=== PATIENT | male | born 1955 | race African-American/Black ===

== ENCOUNTER 2018-04-23 02:10 | Inpatient (IN) | payer MEDICAID, OTHER ==
[~2018-04-23] VITALS: Ht 177.8 cm; Wt 79.4 kg
[2018-04-23 02:53] LABS: BASOPHILS % (AUTO) 1.1 % (0.0-2.0); EOSINOPHILS % (AUTO) 4.1 % (1.0-6.0); HEMATOCRIT 35.2 % (41-53); MEAN CORPUSCULAR HEMOGLOBIN 31.5 pg (26.0-34.0); MEAN CORPUSCULAR HGB CONC 34.2 G/dL (31.0-37.0); MEAN CORPUSCULAR VOLUME 92 fL (80-100); MONOCYTES # (AUTO) 0.6 K/uL (0.1-1.0); MONOCYTES % (AUTO) 9.7 % (2.0-9.0); NEUTROPHILS # (AUTO) 3.6 K/uL (1.8-7.7); NEUTROPHILS % (AUTO) 55.1 % (40.0-70.0); PLATELET COUNT (AUTO) 222 K/uL (150-450); RED BLOOD CELL COUNT(AUTO) 3.82 MIL/uL (4.50-5.90); RED CELL DISTRIBUTION WIDTH 14.8 % (11.5-14.5)
[2018-04-23 03:00] LABS: ANION GAP 8 mmol/L (8-16); CALCIUM, TOTAL 8.5 mg/dL (8.8-10.5); CARBON DIOXIDE 25 mmol/L (22-29); CHLORIDE 106 mmol/L (98-107); CREATININE 1.06 mg/dL (0.60-1.30); GLOMERULAR FILTR. RATE CALC > 60 mL/min (>60); GLUCOSE,RANDOM 95 mg/dL (70-110); POTASSIUM 4.1 mmol/L (3.5-5.1); SODIUM SERUM 139 mmol/L (136-145); UREA NITROGEN, BLOOD 17 mg/dL (7-18)
[2018-04-23 03:07] LABS: ALANINE AMINOTRANSFERASE 37 U/L (12-78); ALBUMIN 3.4 g/dL (3.4-5.0); ALKALINE PHOSPHATASE 95 U/L (46-116); ASPARTATE AMINOTRANSFERASE 35 U/L (15-37); BILIRUBIN,TOTAL 0.4 mg/dL (0.1-1.0); TOTAL PROTEIN, SERUM 6.6 g/dL (6.4-8.2)
[2018-04-23] MEDS ORDERED: ZOLPIDEM TARTRATE 10 MG TABLET PO PRN (05:00)
[2018-04-23] MEDS ORDERED: HALOPERIDOL 5 MG TABLET PO PRN (05:00)
[2018-04-23 12:45] VITALS: BP 146/98
[2018-04-23 16:40] VITALS: BP 160/102
[2018-04-23] MEDS ORDERED: MAG HYDROX/AL HYDROX/SIMETH ES 30 ML SUSPENSION UDCUP PO PRN (17:00)
[2018-04-23] MEDS ORDERED: IBUPROFEN 400 MG TABLET PO PRN (17:00)
[2018-04-23] MEDS ORDERED: ONDANSETRON HCL 4 MG TABLET PO PRN (17:00)
[2018-04-23] MEDS ORDERED: ALBUTEROL SULFATE HFA 90 MCG/PUFF 8 GM INHALER IH PRN (17:00)
[2018-04-23] MEDS ORDERED: PETROLATUM,WHITE 71 GM JELLY TP PRN (17:00)
[2018-04-23] MEDS ORDERED: NICOTINE 14 MG/24 HOUR PATCH TD PRN (17:00)
[2018-04-23] MEDS ORDERED: CloNIDine HCL 0.1 MG TABLET PO PRN (17:00)
[2018-04-23] MEDS ORDERED: DOCUSATE SODIUM 100 MG CAPSULE PO PRN (17:00)
[2018-04-23] MEDS ORDERED: MAGNESIUM HYDROXIDE SUSPENSION 30 ML UDCUP PO PRN (17:00)
[2018-04-23] MEDS ORDERED: GuaiFENesin/D-METHORPHAN [SUGAR-FREE] 200-20MG/10 ML SYRUP UDCUP PO PRN (17:00)
[2018-04-23] MEDS ORDERED: ACETAMINOPHEN 325 MG TABLET PO PRN (17:00)
[2018-04-23] MEDS ORDERED: LOPERAMIDE HCL 2 MG CAPSULE PO PRN (17:00)
[2018-04-23 20:01] VITALS: BP 150/101
[2018-04-23 20:02] VITALS: BP 150/101
[2018-04-23 21:19] VITALS: BP 158/108
[2018-04-24 00:36] VITALS: BP 154/92
[2018-04-24 08:01] VITALS: BP 135/90
[2018-04-24 08:30] LABS: BASOPHILS % (AUTO) 0.8 % (0.0-2.0); HEMATOCRIT 44.6 % (41-53); HEMOGLOBIN 14.9 g/dL (13.5-17.5); LYMPHOCYTES # (AUTO) 1.6 K/uL (1.0-4.8); LYMPHOCYTES % (AUTO) 33.8 % (22.0-44.0); MEAN CORPUSCULAR HEMOGLOBIN 31.6 pg (26.0-34.0); MEAN CORPUSCULAR HGB CONC 33.4 G/dL (31.0-37.0); MEAN CORPUSCULAR VOLUME 94 fL (80-100); MONOCYTES # (AUTO) 0.4 K/uL (0.1-1.0); MONOCYTES % (AUTO) 8.7 % (2.0-9.0); NEUTROPHILS # (AUTO) 2.4 K/uL (1.8-7.7); NEUTROPHILS % (AUTO) 50.7 % (40.0-70.0); PLATELET COUNT (AUTO) 249 K/uL (150-450); RED BLOOD CELL COUNT(AUTO) 4.72 MIL/uL (4.50-5.90)
[2018-04-24 08:46] LABS: HEMOGLOBIN A1C 5.5 % (4.5-6.2)
[2018-04-24 09:06] LABS: ALANINE AMINOTRANSFERASE 33 U/L (12-78); ALBUMIN 3.5 g/dL (3.4-5.0); ALKALINE PHOSPHATASE 103 U/L (46-116); ANION GAP 5 mmol/L (8-16); ASPARTATE AMINOTRANSFERASE 25 U/L (15-37); BILIRUBIN,TOTAL 0.6 mg/dL (0.1-1.0); CALCIUM, TOTAL 8.9 mg/dL (8.8-10.5); CARBON DIOXIDE 31 mmol/L (22-29); CHLORIDE 102 mmol/L (98-107); CREATININE 0.95 mg/dL (0.60-1.30); GLOMERULAR FILTR. RATE CALC > 60 mL/min (>60); GLUCOSE,RANDOM 88 mg/dL (70-110); POTASSIUM 4.5 mmol/L (3.5-5.1); SODIUM SERUM 138 mmol/L (136-145); THYROID STIMULATING HORMONE 1.48 uIU/mL (0.36-3.74); TOTAL PROTEIN, SERUM 6.8 g/dL (6.4-8.2); UREA NITROGEN, BLOOD 11 mg/dL (7-18)
[2018-04-24] MEDS ORDERED: HALOPERIDOL LACTATE 5 MG/ML VIAL ONE (19:24)
[2018-04-24] MEDS ORDERED: LORazepam 2 MG/ML VIAL ONE (19:24)
[2018-04-24] MEDS ORDERED: DiphenhydrAMINE HCL 50 MG/ML VIAL ONE (19:24)
[2018-04-24] MEDS ORDERED: HALOPERIDOL LACTATE 5 MG/ML VIAL IM ONE (19:30)
[2018-04-24] MEDS ORDERED: DiphenhydrAMINE HCL 50 MG/ML VIAL IM ONE (19:30)
[2018-04-24] MEDS ORDERED: LORazepam 2 MG/ML VIAL IM ONE (19:30)
[2018-04-24] MEDS: OLANZapine 5 MG TABLET PO SCH (21:00)
[2018-04-24 21:08] VITALS: BP 143/95
[2018-04-25 08:51] VITALS: BP 141/91
[2018-04-25] MEDS: AmLODIPine BESYLATE 2.5 MG TABLET PO SCH (09:20)
[2018-04-25 16:21] VITALS: BP 132/88
[2018-04-25] MEDS: OLANZapine 5 MG TABLET PO SCH (20:35)
[2018-04-26 05:32] VITALS: BP 144/96
[2018-04-26 08:00] VITALS: BP 139/90
[2018-04-26] MEDS: AmLODIPine BESYLATE 2.5 MG TABLET PO SCH (09:00)
[2018-04-26 16:00] VITALS: BP 140/85
[2018-04-26] MEDS: OLANZapine 5 MG TABLET PO SCH (20:33)
[2018-04-27 06:24] VITALS: BP 142/88
[2018-04-27] MEDS: LORazepam 2 MG TABLET PO PRN ×2 (08:39→20:45)
[2018-04-27] MEDS: AmLODIPine BESYLATE 2.5 MG TABLET PO SCH (08:39)
[2018-04-27 16:31] VITALS: BP 137/94
[2018-04-27] MEDS: OLANZapine 5 MG TABLET PO SCH (20:45)
[2018-04-27] MEDS: MIRTAZAPINE 15 MG TABLET PO SCH (20:45)
[2018-04-28 05:57] VITALS: BP 134/91
[2018-04-28 08:00] VITALS: BP 142/92
[2018-04-28] MEDS: AmLODIPine BESYLATE 2.5 MG TABLET PO SCH (09:08)
[2018-04-28 16:00] VITALS: BP 140/75
[2018-04-28] MEDS: MIRTAZAPINE 15 MG TABLET PO SCH (20:06)
[2018-04-28] MEDS: OLANZapine 5 MG TABLET PO SCH (20:06)
[2018-04-28] MEDS: LORazepam 2 MG TABLET PO PRN (20:06)
[2018-04-29 06:19] VITALS: BP 138/84
[2018-04-29 08:21] VITALS: BP 150/97
[2018-04-29] MEDS: AmLODIPine BESYLATE 2.5 MG TABLET PO SCH (08:28)
[2018-04-29 16:01] VITALS: BP 127/90
[2018-04-29] MEDS: LORazepam 2 MG TABLET PO PRN (16:44)
[2018-04-29] MEDS: OLANZapine 5 MG TABLET PO SCH (20:20)
[2018-04-29] MEDS: MIRTAZAPINE 15 MG TABLET PO SCH (20:20)
[2018-04-30 08:01] VITALS: BP 144/94
[2018-04-30] MEDS: AmLODIPine BESYLATE 2.5 MG TABLET PO SCH (08:25)
[2018-04-30] MEDS ORDERED: OLAN5TAB2 PO (08:51)
[2018-04-30] MEDS ORDERED: AMLO2.5T PO (08:51)
[2018-04-30] MEDS ORDERED: MIRT15 PO (08:51)
== END 2018-04-30 10:30 | disposition home or self-care (01) | DRG 750 ==
LOC: EMS 02:10 → B3A 09:26
PROVIDERS: ADMIT Psychiatry & Neurology Psychiatry; ATTEND Psychiatry & Neurology Psychiatry
DX: F25.0 Schizoaffective disorder, bipolar type (principal); R45.851 Suicidal ideations; Z59.0 Homelessness; I10 Essential (primary) hypertension; B18.2 Chronic viral hepatitis C; D64.9 Anemia, unspecified; F15.90 Other stimulant use, unspecified, uncomplicated; F17.200 Nicotine dependence, unspecified, uncomplicated; F41.9 Anxiety disorder, unspecified; F12.90 Cannabis use, unspecified, uncomplicated; F19.10 Other psychoactive substance abuse, uncomplicated; M19.90 Unspecified osteoarthritis, unspecified site; Z71.6 Tobacco abuse counseling; Z71.51 Drug abuse counseling and surveillance of drug abuser; Z88.0 Allergy status to penicillin
CPT/HCPCS: 83036; 84443; 99285; G0480; J1200; J1630; J2060